=== PATIENT | female | born 1955 | race Caucasian/White ===

== ENCOUNTER 2017-03-03 19:58 | Emergency (ER) | payer OTHER ==
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
[2017-03-04 04:46] VITALS: BP 161/85
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
== END 2017-03-03 21:51 | disposition home or self-care (01) ==
LOC: MW.ED 19:58
DX: S09.90XA Unspecified injury of head, initial encounter (principal); E78.00 Pure hypercholesterolemia, unspecified; I10 Essential (primary) hypertension; F17.210 Nicotine dependence, cigarettes, uncomplicated; Z79.899 Other long term (current) drug therapy; V49.49XA Driver injured in collision with other motor vehicles in traffic accident, initial encounter
CPT/HCPCS: 70450; 72040; 81001; 93005; 99285; G0390; 99284

== ENCOUNTER 2017-06-08 19:40 | Emergency (ER) | payer OTHER, BC ==
[2017-06-08 19:45] VITALS: BP 164/86
--- NOTE | 2017-06-08 20:19 | EDM.PDOC ---
ED HPI GENERAL MEDICAL PROBLEM - General Chief Complaint: ENT Problem Stated Complaint: FOOD STUCK IN THROAT Time Seen by Provider: 06/08/17 20:13 Source of Information: Reports: Patient History Limitations: Reports: No Limitations - History of Present Illness INITIAL COMMENTS - FREE TEXT/NARRATIVE: HISTORY AND PHYSICAL: 61-year-old female presenting with having had spaghetti out her nose she feels that there is some hanging in the back of her throat History of Present Illness: []Patient noticed this this evening and has eaten bread and toast and nothing will relieve the sensation Review of Systems: As per history of present illness and below otherwise all systems reviewed and negative. Past medical history: As per history of present illness and as reviewed below otherwise noncontributory. Surgical history: As per history of present illness and as reviewed below otherwise noncontributory. Social history: No reported history of drug or alcohol abuse. Family history: As per history of present illness and as reviewed below otherwise noncontributory. Physical exam: Female who is anxious. cooperative with examination. Answering questions in full sentences without any shortness of breath HEENT: Atraumatic, normocehpalic, pupils reactive, negative for conjunctival pallor or scleral icterus, mucous membranes moist, throat clear, neck supple, nontender, trachea midline. No sign of any foreign body to the posterior throat or in the right nare Lungs: Clear to auscultation, breath sounds equal bilaterally, chest non tender. Heart: S1S2, regular, negative for clicks, rubs, or JVD. Abdomen: Soft, nondistended, nontender. Negative for masses or hepatossplenmegaly. Negative for costovertebral tenderness. Pelvis: Stable nontender. Genitourinary: Deferred. Rectal: Deferred Extremities: Atraumatic, negative for cords or calf pain. Neurovascular unremarkable. Neuro: Awake, alert, oriented. Cranial nerves II through XII unremarkable. Cerebellum unremarkable. Motor and sensory unremarkable throughout. Exam nonfocal. Discussed Test results with the patient Diagnostics: [] Therapeutics: [] Impression: []Foreign Body sensation posterior nare Plan: [] discharge home Use Jackie pot at home Follow up with your primary care provider Definitive disposition and diagnosis as appropriate pending reevaluation and review of above. Onset: Today, Sudden Duration: Hour(s): Location: Reports: Face Severity: Mild Improves with: Reports: None Worsens with: Reports: None sinuses Pain Score (Numeric/FACES): 2 - Related Data Allergies Allergy/AdvReac Type Severity Reaction Status Date / Time No Known Allergies Allergy Verified 06/08/17 19:45 Home Meds: Home Meds Albuterol Sulfate [Albuterol Sulfate HFA] 2 puff INH Q6HR PRN 01/16/14 [History] Chlorpheniramine Maleate [Allergy] 4 mg PO DAILY 01/16/14 [History] Levothyroxine Sodium [Synthroid] 150 mcg PO DAILY 01/16/14 [History] Montelukast Sodium 10 mg PO DAILY 01/16/14 [History] Budesonide/Formoterol [Symbicort 160-4.5 MCG] 1 - 2 inh IH DAILY 06/08/17 [ History] Tiotropium [Spiriva Handihaler] 1 - 2 inh IH DAILY 06/08/17 [History] Past Medical History HEENT History: Reports: Allergic Rhinitis Cardiovascular History: Reports: Heart Murmur, High Cholesterol, Hypertension Respiratory History: Reports: Asthma, COPD Gastrointestinal History: Reports: GERD Neurological History: Reports: Vertigo Endocrine/Metabolic History: Reports: Hypothyroidism Oncologic (Cancer) History: Reports: Squamous Cell Carcinoma - Infectious Disease History Infectious Disease History: Reports: Chicken Pox - Past Surgical History HEENT Surgical History: Reports: Tonsillectomy Social & Family History - Family History HEENT: Reports: None Cardiac: Reports: None - Tobacco Use Smoking Status *Q: Current Every Day Smoker Years of Tobacco use: 45 Packs/Tins Daily: 1 - Caffeine Use Caffeine Use: Reports: Coffee - Alcohol Use Number of Drinks Per Day: 0 - Recreational Drug Use Recreational Drug Use: Yes Drug Use in Last 12 Months: No Recreational Drug Type: Reports: Marijuana/Hashish ED ROS ENT - Review of Systems Review Of Systems: ROS reveals no pertinent complaints other than HPI. ED EXAM, ENT - Physical Exam Exam: See Below (See dictation) Course - Vital Signs Last Recorded V/S: Last Vital Signs Temp 36.5 C 06/08/17 19:43 Pulse 91 06/08/17 19:43 Resp 12 06/08/17 19:43 BP 164/86 H 06/08/17 19:43 Pulse Ox 97 06/08/17 19:43 Departure - Departure Time of Disposition: 20:16 Disposition: Home, Self-Care 01 Condition: Good Clinical Impression: Sensation of foreign body - Discharge Information Instructions: Nasal Foreign Body, [id number] Additional Instructions: The following information is given to patients seen in the emergency department who are being discharged to home. This information is to outline your options for follow-up care. We provide all patients seen in our emergency department with a follow-up referral. The need for follow-up, as well as the timing and circumstances, are variable depending upon the specifics of your emergency department visit. If you don't have a primary care physician on staff, we will provide you with a referral. We always advise you to contact your personal physician following an emergency department visit to inform them of the circumstance of the visit and for follow-up with them and/or the need for any referrals to a consulting specialist. The emergency department will also refer you to a specialist when appropriate. This referral assures that you have the opportunity for followup care with a specialist. All of these measure are taken in an effort to provide you with optimal care, which includes your followup. Under all circumstances we always encourage you to contact your private physician who remains a resource for coordinating your care. When calling for followup care, please make the office aware that this follow-up is from your recent emergency room visit. If for any reason you are refused follow-up, please contact the [facility] emergency department at and asked to speak to the emergency department charge nurse. Signs of any spaghetti stringing down the back of your throat It Is possible there is a small section that is in the posterior nasal passage Recommend that you use your Jackie pot at home Follow up with your primary care provider Return to the emergency room as directed and discussed
== END 2017-06-08 20:24 | disposition home or self-care (01) ==
LOC: MW.ED 19:40
DX: R09.89 Other specified symptoms and signs involving the circulatory and respiratory systems (principal); E78.00 Pure hypercholesterolemia, unspecified; I10 Essential (primary) hypertension; E03.9 Hypothyroidism, unspecified; F17.210 Nicotine dependence, cigarettes, uncomplicated; Z79.899 Other long term (current) drug therapy
CPT/HCPCS: 99282

== ENCOUNTER 2017-07-16 17:38 | Emergency (ER) | payer BC, OTHER ==
[2017-07-16] MEDS ORDERED: Ondansetron 4 MG/2 ML SDV IVPUSH ONE (17:51)
[2017-07-16] MEDS ORDERED: Sodium Chloride 0.9% 1,000 ML IV ONE (17:51)
[2017-07-16 17:53] VITALS: BP 145/82
--- NOTE | 2017-07-16 18:00 | EDM.PDOC ---
ED HPI GENERAL MEDICAL PROBLEM - General Chief Complaint: Gastrointestinal Problem Stated Complaint: NAUSEA, VOMITING, DIZZY, HEADACHE Time Seen by Provider: 07/16/17 18:08 Source of Information: Reports: Patient History Limitations: Reports: No Limitations - History of Present Illness INITIAL COMMENTS - FREE TEXT/NARRATIVE: HISTORY AND PHYSICAL: History of present illness: Patient is a 61-year-old female who presents to the emergency room with complaints multiple vague symptoms over the past 24 hours. She c/o sinus pressure and pain that starts on the right side of her face goes into the maxillary sinus and into her mouth. States she has severe dizziness which is not affected by movement or resting. States this is constant and prefers to keep her eyes closed. States she is nauseated and had one episode of diarrhea this morning. History of heart murmur, elevated cholesterol, hypertension, and allergic rhinitis. She denies any recent injury or trauma. She denies any fever, chills, chest pain or shortness of breath. Denies any abdominal pain, dysuria syncopal events. Review of systems: As per history of present illness and below otherwise all systems reviewed and negative. Past medical history: As per history of present illness and as reviewed below otherwise noncontributory. Surgical history: As per history of present illness and as reviewed below otherwise noncontributory. Social history: No reported history of drug or alcohol abuse. Family history: As per history of present illness and as reviewed below otherwise noncontributory. Physical exam: General: Well-developed, thin but well-nourished 61-year-old female. Alert and oriented. Nontoxic appearing and in no acute distress. HEENT: Atraumatic, normocephalic, pupils equal and reactive bilaterally, negative for conjunctival pallor or scleral icterus, mucous membranes moist, throat clear, neck supple, nontender, trachea midline. Maxillary sinus tenderness bilaterallly. No drooling or trismus noted. No meningeal signs. No hot potato voice. Lungs: Clear to auscultation, breath sounds equal bilaterally, chest nontender. Heart: S1S2, regular rate and rhythm without overt murmur Abdomen: Soft, nondistended, nontender. Negative for masses or hepatosplenomegaly. Negative for costovertebral tenderness. Pelvis: Stable nontender. Genitourinary: Deferred. Rectal: Deferred. Skin: Intact, warm, dry. No lesions or rashes noted. Extremities: Atraumatic, negative for cords or calf pain. Neurovascular unremarkable. Neuro: Awake, alert, oriented. Cranial nerves II through XII unremarkable. Cerebellum unremarkable. Motor and sensory unremarkable throughout. Exam nonfocal. Notes: Patient is very vague and nonspecific with her symptoms. I will to some routine lab work along with cardiac enzymes/EKG/chest x-ray. Upon the interventional radiology technologist bringing the patient down for head CT. Patient one is unable to lie flat as she states she was too dizzy to sit still or lay in a supine position. Did have to give her 2.5 mg of Valium to get her durable enough to have the CT completed Patient states she feels improved after the IV fluids and medications. Head CT shows no acute findings. Chest x-ray is normal. EKG shows no acute findings. We' ll give her a gram of Rocephin IV for the sinus pressure and pain she is having and she does also have a white count of 12.3. I did offer her admission for observation, she declined. She feels better and would like to be discharged to home. I encouraged her to follow up with her primary care provider in the next 1 -2 days. She voices understanding and is agreeable to plan of care. She denies any further questions at this time. Diagnostics: CBC, CMP, troponin, EKG, head CT, CXR Therapeutics: IV fluids, Zofran, Valium Impression: Dizziness Plan: Follow up with your primary care provider in the next 1-2 day. Return to the ED as needed and as discussed. Definitive disposition and diagnosis as appropriate pending reevaluation and review of above. Onset: Today Duration: Day(s): Location: Reports: Face Face Pain Score (Numeric/FACES): 9 - Related Data Allergies Allergy/AdvReac Type Severity Reaction Status Date / Time No Known Allergies Allergy Verified 07/16/17 17:55 Home Meds: Home Meds Albuterol Sulfate [Albuterol Sulfate HFA] 2 puff INH Q6HR PRN 01/16/14 [History] Levothyroxine Sodium [Synthroid] 150 mcg PO DAILY 01/16/14 [History] Montelukast Sodium 10 mg PO DAILY 01/16/14 [History] Budesonide/Formoterol [Symbicort 160-4.5 MCG] 1 - 2 inh IH DAILY 06/08/17 [ History] Tiotropium [Spiriva Handihaler] 1 - 2 inh IH DAILY 06/08/17 [History] Past Medical History HEENT History: Reports: Allergic Rhinitis Cardiovascular History: Reports: Heart Murmur, High Cholesterol, Hypertension Respiratory History: Reports: Asthma, COPD Gastrointestinal History: Reports: GERD Neurological History: Reports: Vertigo Endocrine/Metabolic History: Reports: Hypothyroidism Oncologic (Cancer) History: Reports: Squamous Cell Carcinoma - Infectious Disease History Infectious Disease History: Reports: Chicken Pox - Past Surgical History HEENT Surgical History: Reports: Tonsillectomy Social & Family History - Family History HEENT: Reports: None Cardiac: Reports: None - Caffeine Use Caffeine Use: Reports: Coffee ED ROS GENERAL - Review of Systems Review Of Systems: ROS reveals no pertinent complaints other than HPI. ED EXAM, GENERAL - Physical Exam Exam: See Below (See dictation) Course - Vital Signs Last Recorded V/S: Last Vital Signs Temp 98.8 F 07/16/17 17:50 Pulse 93 07/16/17 17:50 Resp 18 07/16/17 17:50 BP 145/82 H 07/16/17 17:50 Pulse Ox 93 L 07/16/17 17:50 Orthostatic Blood Pressure [ 169/79 Standing] Orthostatic Blood Pressure [ 149/79 Sitting] Orthostatic Blood Pressure [ 151/81 Supine] - Orders/Labs/Meds Labs: Laboratory Tests 07/16/17 07/16/17 07/16/17 Range/Units 18:02 18:02 19:03 WBC 12.23 H (4.0-11.0) K/uL RBC 4.71 (4.30-5.90) M/uL Hgb 15.1 (12.0-16.0) g/dL Hct 44.9 (36.0-46.0) % MCV 95.3 (80.0-98.0) fL MCH 32.1 H (27.0-32.0) pg MCHC 33.6 (31.0-37.0) g/dL RDW Std Deviation 46.2 (28.0-62.0) fl RDW Coeff of Alejo 13 (11.0-15.0) % Plt Count 350 (150-400) K/uL MPV 8.90 (7.40-12.00) fL Neut % (Auto) 68.4 (48.0-80.0) % Lymph % (Auto) 22.9 (16.0-40.0) % Divide % (Auto) 7.8 (0.0-15.0) % Eos % (Auto) 0.5 (0.0-7.0) % Baso % (Auto) 0.4 (0.0-1.5) % Neut # (Auto) 8.4 H (1.4-5.7) K/uL Lymph # (Auto) 2.8 H (0.6-2.4) K/uL Divide # (Auto) 1.0 H (0.0-0.8) K/uL Eos # (Auto) 0.1 (0.0-0.7) K/uL Baso # (Auto) 0.1 (0.0-0.1) K/uL Nucleated RBC % 0.0 /100WBC Nucleated RBCs # 0 K/uL Sodium 137 (136-145) mmol/L Potassium 3.8 (3.5-5.1) mmol/L Chloride 102 (98-107) mmol/L Carbon Dioxide 25.9 (21.0-32.0) mmol/L BUN 16 (7.0-18.0) mg/dL Creatinine 0.8 (0.6-1.0) mg/dL Est Cr Clr Drug Dosing 50.12 mL/min Estimated GFR (MDRD) > 60.0 ml/min Glucose 101 (74-106) mg/dL Calcium 9.0 (8.5-10.1) mg/dL Total Bilirubin 0.7 (0.2-1.0) mg/dL AST 15 (15-37) IU/L ALT 21 (14-63) IU/L Alkaline Phosphatase 71 (46-116) U/L Troponin I < 0.050 (0.000-0.056) ng/mL Total Protein 7.6 (6.4-8.2) g/dL Albumin 4.2 (3.4-5.0) g/dL Globulin 3.4 (2.0-3.5) g/dL Albumin/Globulin Ratio 1.2 L (1.3-2.8) Urine Color YELLOW Urine Appearance CLEAR Urine pH 7.0 (5.0-8.0) Ur Specific [place] 1.010 (1.001-1.035) Urine Protein NEGATIVE (NEGATIVE) mg/dL Urine Glucose (UA) NEGATIVE (NEGATIVE) mg/dL Urine Ketones TRACE H (NEGATIVE) mg/dL Urine Occult Blood SMALL H (NEGATIVE) Urine Nitrite NEGATIVE (NEGATIVE) Urine Bilirubin NEGATIVE (NEGATIVE) Urine Urobilinogen 0.2 (<2.0) EU/dL Ur Leukocyte Esterase TRACE (NEGATIVE) Urine RBC 2-3 (0-2/HPF) Urine WBC 2-5 (0-5/HPF) Ur Epithelial Cells OCCASIONAL (NONE-FEW) Amorphous Sediment FEW (NEGATIVE) Urine Bacteria FEW (NEGATIVE) Urine Mucus FEW (NONE-MOD) Meds: Medications Discontinued Medications Generic Name Dose Route Start Last Admin Trade Name Julio PRN Reason Stop Dose Admin Diazepam 5 mg 07/16/17 18:29 Valium IV 07/16/17 18:30 ONETIME ONE Diazepam 2.5 mg 07/16/17 18:29 07/16/17 18:46 Valium IV 07/16/17 18:30 2.5 mg ONETIME ONE Administration Sodium Chloride 1,000 mls @ 999 mls/hr 07/16/17 17:51 07/16/17 18:05 Normal Saline IV 07/16/17 18:51 999 mls/hr STAT ONE Administration Ceftriaxone Sodium/Dextrose 1 50 mls @ 100 mls/hr 07/16/17 19:57 gm/ Premix IV 07/16/17 20:26 ONETIME ONE Ondansetron HCl 4 mg 07/16/17 17:51 07/16/17 18:05 Zofran IVPUSH 07/16/17 17:52 4 mg ONETIME ONE Administration Departure - Departure Time of Disposition: 21:30 Disposition: Home, Self-Care 01 Clinical Impression: Dizziness - Discharge Information Referrals: PCP,None [Primary Care Provider] - Forms: ED Department Discharge Additional Instructions: The following information is given to patients seen in the emergency department who are being discharged to home. This information is to outline your options for follow-up care. We provide all patients seen in our emergency department with a follow-up referral. The need for follow-up, as well as the timing and circumstances, are variable depending upon the specifics of your emergency department visit. If you don't have a primary care physician on staff, we will provide you with a referral. We always advise you to contact your personal physician following an emergency department visit to inform them of the circumstance of the visit and for follow-up with them and/or the need for any referrals to a consulting specialist. The emergency department will also refer you to a specialist when appropriate. This referral assures that you have the opportunity for follow-up care with a specialist. All of these measure are taken in an effort to provide you with optimal care, which includes your follow-up. Under all circumstances we always encourage you to contact your private physician who remains a resource for coordinating your care. When calling for follow-up care, please make the office aware that this follow-up is from your recent emergency room visit. If for any reason you are refused follow-up, please contact the [facility] Emergency Department at and asked to speak to the emergency department charge nurse. [facility] [address] [place] [id number] Follow up with your primary care provider in the next 1-2 day. Return to the ED as needed and as discussed.
[2017-07-16] MEDS ORDERED: Diazepam 5 MG/ML 10 ML Vial MDV IV ONE ×2 (18:29)
[2017-07-16 18:31] LABS: CHLORIDE,CL 102 mmol/L (98-107); SODIUM,NA 137 mmol/L (136-145)
[2017-07-16] MEDS ORDERED: cefTRIAXone 1 GM in Premix Bag 1 BAG IV ONE (19:57)
--- NOTE | 2017-07-17 09:24 | CR ---
EXAM DATE: 07/16/17 PATIENT'S AGE: 61 Patient: MAY BRITTANEY Facility: [place], [place] Site . Site : 1955 Study: XRay Chest [id number] 6:37:52 PM Ordering Physician: Doctor Morse Final Report: INDICATION: Dizziness. Nausea and vomiting. COMPARISON: none TECHNIQUE: Two view chest. FINDINGS: The lungs are clear. There is no evidence of pneumothorax. The visualized bowel gas appears normal. The heart, mediastinum and pulmonary vessels are of normal size. There is no evidence of pleural fluid. IMPRESSION: Negative chest. Dictated by Javi Haider MD @ Jul 16 2017 7:16PM (Electronic Signature) Report Signed by Proxy. GEOFF
--- NOTE | 2017-07-17 09:24 | CT ---
EXAM DATE: 07/16/17 PATIENT'S AGE: 61 Patient: MAY BRITTANEY Facility: [place], [place] Site . Site : 1955 Study: CT Head [id number] 6:47:41 PM Ordering Physician: Doctor Morse Final Report: INDICATION: Trauma. Dizziness and nausea. COMPARISON: Head CT dated 03/03/2017. TECHNIQUE: A CT volumetric acquisition was performed of the brain without IV contrast. FINDINGS: There is no evidence of a subdural or epidural hematoma. There is no evidence of subarachnoid hemorrhage or intraparenchymal bleeding. The CT images reveal a normal appearance of the cerebral ventricles and basal cisterns. There is no evidence of localized tissue infarction or mass effect. There is normal bird white matter differentiation. The mastoid air cells and middle ear cavities are clear. The calvarium appears intact. There is normal aeration of the visualized paranasal sinuses. There is stable deformity of the medial wall of the left orbit consistent with an old healed fracture. This appears unchanged from the prior CT of 03/03/2017. The zygomatic arches appear intact. There is an old healed fracture deformity right mandibular condyle. IMPRESSION: No evidence of acute hemorrhage, infarct or mass effect. Please note that all CT scans at this facility use dose modulation, iterative reconstruction, and/or weight-based dosing when appropriate to reduce radiation dose to as low as reasonably achievable. Dictated by Javi Haider MD @ Jul 16 2017 7:22PM (Electronic Signature) Report Signed by Proxy. GEOFF
== END 2017-07-16 21:24 | disposition home or self-care (01) ==
LOC: MW.ED 17:38
DX: R42 Dizziness and giddiness (principal); E78.00 Pure hypercholesterolemia, unspecified; I10 Essential (primary) hypertension; J45.909 Unspecified asthma, uncomplicated; E03.9 Hypothyroidism, unspecified; Z79.899 Other long term (current) drug therapy
CPT/HCPCS: 36415; 70450; 71045; 80053; 81001; 84484; 85025; 93005; 96361; 96365; 96375; 99284; A9270; J2405; J7040; 99283

== ENCOUNTER 2022-02-14 14:25 | Inpatient (IN) | payer OTHER ==
[2022-02-14] MEDS ORDERED: Sodium Chloride 0.9% 10 ML Syringe FLUSH PRN ×2 (15:38→18:17)
[2022-02-14] MEDS ORDERED: Sodium Chloride 0.9% 2.5 ML Syringe FLUSH PRN ×2 (15:38→18:17)
[2022-02-14] MEDS ORDERED: methylPREDNISolone Sodium Succinate 125 MG/2 ML SDV IVPUSH ONE (15:38)
[2022-02-14] MEDS ORDERED: Albuterol/Ipratropium 3.0-0.5 MG/3 ML Neb Soln NEB ONE ×2 (15:39→16:49)
[2022-02-14 16:10] LABS: CORONAVIRUS COVID-19 NAA NEGATIVE (NEGATIVE); INFLUENZA A NAA NEGATIVE (NEGATIVE); INFLUENZA B NAA NEGATIVE (NEGATIVE)
[2022-02-14 16:10] LABS: CARBON DIOXIDE,CO2 31.4 mmol/L (21.0-32.0); POTASSIUM,K 3.8 mmol/L (3.5-5.1)
[2022-02-14] MEDS ORDERED: NIFEdipine 30 MG Tab.ER PO ONE (17:22)
[2022-02-14] MEDS ORDERED: Azithromycin 500 MG in Sodium Chloride 0.9% 250 ML IV ONE (17:24)
[2022-02-14] MEDS ORDERED: cefTRIAXone 1 GM in Sodium Chloride 0.9% 50 ML IV ONE (17:24)
[2022-02-14] MEDS ORDERED: Labetalol 100 MG/20 ML MDV IVPUSH PRN (18:15)
[2022-02-14] MEDS ORDERED: Polyethylene Glycol 3350 Powder 17 GM Packet PO PRN (18:17)
[2022-02-14] MEDS ORDERED: Ondansetron 4 MG/2 ML SDV IVPUSH PRN (18:17)
[2022-02-14] MEDS ORDERED: Albuterol/Ipratropium 3.0-0.5 MG/3 ML Neb Soln NEB PRN (18:28)
[2022-02-14] MEDS ORDERED: Pantoprazole 40 MG in Sodium Chloride 0.9% 10 ML IVPUSH SCH (18:45)
[2022-02-14] MEDS ORDERED: Lisinopril 5 MG Tab PO ONE (18:50)
[2022-02-14] MEDS: Acetaminophen 325 MG Tab PO PRN (19:59)
[2022-02-14] MEDS: Albuterol/Ipratropium 3.0-0.5 MG/3 ML Neb Soln NEB SCH (21:39)
[2022-02-14] MEDS: Enoxaparin 40 MG/0.4 ML Syringe SUBCUT SCH (21:40)
[2022-02-15] MEDS: Albuterol/Ipratropium 3.0-0.5 MG/3 ML Neb Soln NEB SCH ×2 (01:05→07:26)
[2022-02-15 06:51] LABS: CARBON DIOXIDE,CO2 28.7 mmol/L (21.0-32.0); POTASSIUM,K 3.8 mmol/L (3.5-5.1)
[2022-02-15] MEDS: Levothyroxine 150 MCG Tab PO SCH (08:27)
[2022-02-15] MEDS: Magnesium Oxide 400 MG Tab PO SCH ×2 (08:27→20:30)
[2022-02-15] MEDS: Azithromycin 500 MG in Sodium Chloride 0.9% 250 ML IV SCH (08:28)
[2022-02-15] MEDS: methylPREDNISolone Sodium Succinate 40 MG/1 ML SDV IVPUSH SCH ×2 (08:28→20:30)
[2022-02-15] MEDS: Tiotropium Bromide 4 GM Inhalation Spray (2.5mcg/1 dose; 10 doses) INH SCH (08:28)
[2022-02-15] MEDS ORDERED: Lisinopril 5 MG Tab PO SCH (09:00)
[2022-02-15] MEDS: cefTRIAXone 1 GM in Sodium Chloride 0.9% 50 ML IV SCH (11:00)
[2022-02-15] MEDS ORDERED: Lisinopril 5 MG Tab PO ONE (16:39)
[2022-02-15] MEDS: Enoxaparin 40 MG/0.4 ML Syringe SUBCUT SCH (18:04)
[2022-02-15] MEDS: Pantoprazole 40 MG Tab.CR PO SCH ×2 (20:30→20:31)
[2022-02-15] MEDS: Acetaminophen 325 MG Tab PO PRN (20:37)
[2022-02-16 06:05] VITALS: PULSE 83
[2022-02-16 07:40] LABS: CARBON DIOXIDE,CO2 27.9 mmol/L (21.0-32.0); POTASSIUM,K 4.3 mmol/L (3.5-5.1)
[2022-02-16] MEDS ORDERED: Pantoprazole 40 MG Tab.CR PO SCH (07:51)
[2022-02-16] MEDS ORDERED: Budesonide/Formoterol 160-4.5 MCG/Puff 6 GM Inhaler INH SCH (07:58)
[2022-02-16] MEDS ORDERED: Bismuth Subsalicylate 262 MG/15 ML Susp 236 ML Bottle PO ONE (08:01)
[2022-02-16] MEDS: Azithromycin 500 MG in Sodium Chloride 0.9% 250 ML IV SCH (08:03)
[2022-02-16] MEDS ORDERED: Albuterol 8 GM Inhaler INH PRN (08:03)
[2022-02-16] MEDS: cefTRIAXone 1 GM in Sodium Chloride 0.9% 50 ML IV SCH (08:03)
[2022-02-16] MEDS: Levothyroxine 150 MCG Tab PO SCH (08:03)
[2022-02-16] MEDS: methylPREDNISolone Sodium Succinate 40 MG/1 ML SDV IVPUSH SCH (08:04)
[2022-02-16] MEDS ORDERED: Calcium Carbonate 500 MG Tab.Chew PO PRN (08:20)
[2022-02-16] MEDS: Tiotropium Bromide 4 GM Inhalation Spray (2.5mcg/1 dose; 10 doses) INH SCH (08:27)
[2022-02-16 08:30] VITALS: BP 175/79
[2022-02-16] MEDS ORDERED: Lisinopril 10 MG Tab PO SCH (09:00)
[2022-02-16] MEDS ORDERED: Fluticasone/Salmeterol 250-50 MCG Inhalation Powder 14/Diskus INH SCH (09:30)
== END 2022-02-16 11:45 | disposition home or self-care (01) | DRG 193 ==
LOC: MW.ED 14:25 → MW.MS 17:40
PROVIDERS: ADMIT Internal Medicine; ATTEND Internal Medicine
DX: J18.9 Pneumonia, unspecified organism (principal); J96.01 Acute respiratory failure with hypoxia; J44.0 Chronic obstructive pulmonary disease with (acute) lower respiratory infection; J44.1 Chronic obstructive pulmonary disease with (acute) exacerbation; Z20.822 Contact with and (suspected) exposure to COVID-19; I10 Essential (primary) hypertension; I16.0 Hypertensive urgency; E78.00 Pure hypercholesterolemia, unspecified; E03.9 Hypothyroidism, unspecified; K21.9 Gastro-esophageal reflux disease without esophagitis; F17.210 Nicotine dependence, cigarettes, uncomplicated; Z79.890 Hormone replacement therapy; Z79.899 Other long term (current) drug therapy; Z85.828 Personal history of other malignant neoplasm of skin; Z86.19 Personal history of other infectious and parasitic diseases; Z90.89 Acquired absence of other organs; Z91.14 Patient's other noncompliance with medication regimen; Z79.51 Long term (current) use of inhaled steroids
CPT/HCPCS: 0240U; 36415; 71045; 80048; 80053; 83735; 83880; 84100; 84484; 85025; 87040; 93005; 94640; 96365; 96375; 99285; 93010; A9270-GY; C9113; J0456; J0696; J1650; J2920; J2930; J3490; J7050; J7620-GY

== ENCOUNTER 2022-03-31 10:30 | Emergency (ER) | payer OTHER ==
[2022-03-31] MEDS ORDERED: Sodium Chloride 0.9% 2.5 ML Syringe FLUSH PRN (10:35)
[2022-03-31] MEDS ORDERED: Sodium Chloride 0.9% 10 ML Syringe FLUSH PRN (10:35)
[2022-03-31 11:22] LABS: CARBON DIOXIDE,CO2 30.1 mmol/L (21.0-32.0); POTASSIUM,K 4.1 mmol/L (3.5-5.1)
[2022-03-31] MEDS ORDERED: Ondansetron 4 MG/2 ML SDV IVPUSH ONE (11:22)
[2022-03-31 12:31] VITALS: BP 190/97; PULSE 86
== END 2022-03-31 12:17 | disposition home or self-care (01) ==
LOC: MW.ED 10:30
DX: R19.7 Diarrhea, unspecified (principal); I10 Essential (primary) hypertension; J44.9 Chronic obstructive pulmonary disease, unspecified; K21.9 Gastro-esophageal reflux disease without esophagitis; E03.9 Hypothyroidism, unspecified; Z79.899 Other long term (current) drug therapy
CPT/HCPCS: 36415; 80053; 81001; 85025; 96374; 99284; J2405; J3490

== ENCOUNTER 2022-05-29 10:05 | Emergency (ER) | payer OTHER ==
[2022-05-29] MEDS ORDERED: predniSONE 10 MG Tab PO ONE (11:19)
[2022-05-29] MEDS ORDERED: Albuterol/Ipratropium 3.0-0.5 MG/3 ML Neb Soln NEB ONE (11:19)
[2022-05-29 12:26] LABS: CORONAVIRUS COVID-19 NAA NEGATIVE (NEGATIVE); INFLUENZA A NAA NEGATIVE (NEGATIVE); INFLUENZA B NAA NEGATIVE (NEGATIVE); RESPIRATORY SYNCYTIAL VIR NAA NEGATIVE (NEGATIVE)
[2022-05-29 12:44] VITALS: BP 186/87; PULSE 83
== END 2022-05-29 12:44 | disposition home or self-care (01) ==
LOC: MW.ED 10:05
DX: J40 Bronchitis, not specified as acute or chronic (principal); I10 Essential (primary) hypertension; K21.9 Gastro-esophageal reflux disease without esophagitis; E03.9 Hypothyroidism, unspecified; Z79.899 Other long term (current) drug therapy; Z20.822 Contact with and (suspected) exposure to COVID-19
CPT/HCPCS: 0241U; 71046; 99284; A9270; 99283; J7620-GY

== ENCOUNTER 2022-06-02 15:48 | Inpatient (IN) | payer OTHER ==
[2022-06-02] MEDS ORDERED: Sodium Chloride 0.9% 10 ML Syringe FLUSH PRN (15:59)
[2022-06-02] MEDS ORDERED: Sodium Chloride 0.9% 2.5 ML Syringe FLUSH PRN (15:59)
[2022-06-02 16:52] LABS: CARBON DIOXIDE,CO2 30.3 mmol/L (21.0-32.0)
[2022-06-02] MEDS ORDERED: Sodium Chloride 0.9% 1,000 ML IV ONE (17:30)
[2022-06-02] MEDS ORDERED: Lisinopril 10 MG Tab PO ONE (17:31)
[2022-06-02] MEDS ORDERED: Aspirin 81 MG Tab.Chew PO ONE (17:31)
[2022-06-02] MEDS ORDERED: cefTRIAXone 1 GM in Sodium Chloride 0.9% 50 ML IV ONE (19:04)
[2022-06-02] MEDS ORDERED: cefTRIAXone 1 GM in Sodium Chloride 0.9% 50 ML IV SCH (22:15)
[2022-06-02] MEDS: Enoxaparin 40 MG/0.4 ML Syringe SUBCUT SCH (22:49)
[2022-06-02] MEDS: Azithromycin 500 MG in Sodium Chloride 0.9% 250 ML IV SCH (22:49)
[2022-06-02] MEDS: Levothyroxine 75 MCG Tab PO SCH (22:49)
[2022-06-02] MEDS: Albuterol/Ipratropium 3.0-0.5 MG/3 ML Neb Soln NEB SCH (23:40)
[2022-06-03] MEDS ORDERED: Lisinopril 10 MG Tab PO ONE ×2 (04:27→11:45)
[2022-06-03 06:22] LABS: CARBON DIOXIDE,CO2 28.4 mmol/L (21.0-32.0); POTASSIUM,K 4.1 mmol/L (3.5-5.1)
[2022-06-03] MEDS: Albuterol/Ipratropium 3.0-0.5 MG/3 ML Neb Soln NEB SCH ×4 (06:39→23:43)
[2022-06-03] MEDS: Pantoprazole 40 MG Tab.CR PO SCH (07:03)
[2022-06-03] MEDS ORDERED: Lisinopril 10 MG Tab PO SCH (09:00)
[2022-06-03] MEDS: Polyethylene Glycol 3350 Powder 17 GM Packet PO SCH (11:52)
[2022-06-03] MEDS: cefTRIAXone 1 GM in Sodium Chloride 0.9% 50 ML IV SCH (18:34)
[2022-06-03] MEDS: Enoxaparin 40 MG/0.4 ML Syringe SUBCUT SCH (22:06)
[2022-06-03] MEDS: Azithromycin 500 MG in Sodium Chloride 0.9% 250 ML IV SCH (22:06)
[2022-06-03] MEDS: Levothyroxine 75 MCG Tab PO SCH (22:06)
[2022-06-03] MEDS: Acetaminophen 325 MG Tab PO PRN (22:23)
[2022-06-03] MEDS ORDERED: amLODIPine 5 MG Tab PO ONE (23:53)
[2022-06-04] MEDS: Pantoprazole 40 MG Tab.CR PO SCH ×2 (06:23→06:29)
[2022-06-04] MEDS: Albuterol/Ipratropium 3.0-0.5 MG/3 ML Neb Soln NEB SCH (06:35)
[2022-06-04 06:51] LABS: CARBON DIOXIDE,CO2 28.6 mmol/L (21.0-32.0)
[2022-06-04] MEDS: Polyethylene Glycol 3350 Powder 17 GM Packet PO SCH (08:49)
[2022-06-04] MEDS: Lisinopril 10 MG Tab PO SCH (08:50)
[2022-06-04] MEDS: Albuterol 0.083% 2.5 MG/3 ML Neb Soln INH SCH ×3 (12:00→23:58)
[2022-06-04] MEDS: Ipratropium 0.02% 0.5 MG/2.5 ML Neb Soln INH SCH ×3 (12:00→23:58)
[2022-06-04] MEDS: cefTRIAXone 1 GM in Sodium Chloride 0.9% 50 ML IV SCH (18:35)
[2022-06-04] MEDS: Azithromycin 500 MG in Sodium Chloride 0.9% 250 ML IV SCH ×2 (21:20→21:43)
[2022-06-04] MEDS: Levothyroxine 75 MCG Tab PO SCH ×2 (21:20→21:43)
[2022-06-04] MEDS: Enoxaparin 40 MG/0.4 ML Syringe SUBCUT SCH (21:20)
[2022-06-04] MEDS ORDERED: Albuterol 8 GM Inhaler INH PRN (22:15)
[2022-06-05] MEDS: Pantoprazole 40 MG Tab.CR PO SCH (06:30)
[2022-06-05] MEDS: Ipratropium 0.02% 0.5 MG/2.5 ML Neb Soln INH SCH (06:41)
[2022-06-05] MEDS: Albuterol 0.083% 2.5 MG/3 ML Neb Soln INH SCH (06:42)
[2022-06-05 07:09] LABS: CARBON DIOXIDE,CO2 31.2 mmol/L (21.0-32.0); POTASSIUM,K 3.8 mmol/L (3.5-5.1)
[2022-06-05] MEDS: Polyethylene Glycol 3350 Powder 17 GM Packet PO SCH (09:17)
[2022-06-05] MEDS: Lisinopril 10 MG Tab PO SCH (09:19)
[2022-06-05] MEDS ORDERED: guaiFENesin/Dextromethorphan 100-10 MG/5 ML Soln 10 ML Cup PO PRN (09:36)
[2022-06-05] MEDS ORDERED: Benzonatate 100 MG Cap PO PRN (09:36)
[2022-06-05] MEDS ORDERED: oxyCODONE 5 MG Tab PO PRN (09:37)
[2022-06-05] MEDS ORDERED: Morphine 2 MG/ML SYRINGE IVPUSH PRN (09:37)
[2022-06-05] MEDS ORDERED: traMADol 50 MG Tab PO PRN (09:40)
[2022-06-05] MEDS: hydrALAZINE 20 MG/ML SDV IVPUSH PRN (10:06)
[2022-06-05] MEDS: Hydrochlorothiazide 12.5 MG Cap PO SCH (10:19)
[2022-06-05] MEDS: Albuterol/Ipratropium 3.0-0.5 MG/3 ML Neb Soln INH SCH ×3 (12:14→23:54)
[2022-06-05] MEDS: cefTRIAXone 1 GM in Sodium Chloride 0.9% 50 ML IV SCH (19:01)
[2022-06-05] MEDS: Azithromycin 500 MG in Sodium Chloride 0.9% 250 ML IV SCH (22:40)
[2022-06-05] MEDS: Levothyroxine 75 MCG Tab PO SCH (22:43)
[2022-06-05] MEDS: Enoxaparin 40 MG/0.4 ML Syringe SUBCUT SCH (22:44)
[2022-06-06] MEDS: hydrALAZINE 20 MG/ML SDV IVPUSH PRN (05:08)
[2022-06-06] MEDS: Pantoprazole 40 MG Tab.CR PO SCH (06:30)
[2022-06-06] MEDS: Albuterol/Ipratropium 3.0-0.5 MG/3 ML Neb Soln INH SCH (06:40)
[2022-06-06] MEDS: Acetaminophen 325 MG Tab PO PRN (07:41)
[2022-06-06] MEDS: Polyethylene Glycol 3350 Powder 17 GM Packet PO SCH (08:30)
[2022-06-06] MEDS: Hydrochlorothiazide 12.5 MG Cap PO SCH (08:30)
[2022-06-06 08:57] LABS: CARBON DIOXIDE,CO2 27.2 mmol/L (21.0-32.0); POTASSIUM,K 4.1 mmol/L (3.5-5.1)
[2022-06-06] MEDS ORDERED: Lisinopril 10 MG Tab PO SCH (09:00)
[2022-06-06 11:20] VITALS: BP 146/67; PULSE 86
== END 2022-06-06 13:00 | disposition home health service (06) | DRG 194 ==
LOC: MW.ED 15:48 → MW.MS 19:39
PROVIDERS: ADMIT Internal Medicine; ATTEND Internal Medicine
DX: J18.9 Pneumonia, unspecified organism (principal); E46 Unspecified protein-calorie malnutrition; Z68.1 Body mass index [BMI] 19.9 or less, adult; J44.0 Chronic obstructive pulmonary disease with (acute) lower respiratory infection; E78.00 Pure hypercholesterolemia, unspecified; K21.9 Gastro-esophageal reflux disease without esophagitis; E03.9 Hypothyroidism, unspecified; I10 Essential (primary) hypertension; Z79.51 Long term (current) use of inhaled steroids; Z79.899 Other long term (current) drug therapy; Z91.148 Patient's other noncompliance with medication regimen for other reason; Z90.89 Acquired absence of other organs
CPT/HCPCS: 36415; 70450; 70450-26; 71045; 71045-26; 80048; 80053; 80305-QW; 81001; 82947; 83605; 83735; 84439; 84443; 84481; 84484; 85025; 85610; 93005; 93010; 94640; 96361; 96365; 97162-GP; 99285; 99285-25; A9270-GY; J0360; J0456; J0696; J1650; J2270; J3490; J7030; J7050; J7620-GY

== ENCOUNTER 2022-06-10 13:34 | Inpatient (IN) | payer OTHER ==
[2022-06-10] MEDS ORDERED: Sodium Chloride 0.9% 1,000 ML IV STA (13:54)
[2022-06-10] MEDS ORDERED: Sodium Chloride 0.9% 20 ML SDV IV PRN (13:54)
[2022-06-10] MEDS ORDERED: Sodium Chloride 0.9% 10 ML Syringe FLUSH PRN (13:54)
[2022-06-10] MEDS ORDERED: Sodium Chloride 0.9% 2.5 ML Syringe FLUSH PRN (13:54)
[2022-06-10 14:03] LABS: BASOPHILS ABSOLUTE AUTO 0.1 K/uL (0.0-0.1); BASOPHILS PERCENT AUTO 0.4 % (0.0-1.5); EOSINOPHILS ABSOLUTE AUTO 0.1 K/uL (0.0-0.7); EOSINOPHILS PERCENT AUTO 0.6 % (0.0-7.0); HEMATOCRIT 44.7 % (36.0-46.0); HEMOGLOBIN 14.6 g/dL (12.0-16.0); LYMPHOCYTES ABSOLUTE AUTO 0.9 K/uL (0.6-2.4); LYMPHOCYTES PERCENT AUTO 6.8 % (16.0-40.0); MEAN CORPUSCULAR HEMOGLOBIN 31.8 pg (27.0-32.0); MEAN CORPUSCULAR HGB CONC 32.7 g/dL (31.0-37.0); MEAN CORPUSCULAR VOLUME 97.4 fL (80.0-98.0); MONOCYTES PERCENT AUTO 7.4 % (0.0-15.0); NEUTROPHILS PERCENT AUTO 84.8 % (48.0-80.0); NRBC ABSOLUTE 0 K/uL; PLATELET COUNT,PLT 393 K/uL (150-400); RED BLOOD CELL COUNT 4.59 M/uL (4.30-5.90); WHITE BLOOD CELL COUNT,WBC 13.02 K/uL (4.0-11.0)
[2022-06-10 14:12] LABS: INR 0.98 (0.86-1.11); PTT,PARTIAL THROMBOPLSTIN TIME 32.9 SEC (23.9-30.7)
[2022-06-10 14:23] LABS: A/G RATIO 0.6 (0.9-1.6); ALANINE AMINOTRANSFERASE,ALT 19 IU/L (14-63); ALBUMIN 2.7 g/dL (3.4-5.0); ALKALINE PHOSPHATASE 103 U/L (46-116); ASPARTATE AMNIOTRANSFERASE,AST 21 IU/L (15-37); BILIRUBIN TOTAL 0.3 mg/dL (0.2-1.0); BLOOD UREA NITROGEN,BUN 19 mg/dL (7.0-18.0); CALCIUM 8.7 mg/dL (8.5-10.1); CARBON DIOXIDE,CO2 29.9 mmol/L (21.0-32.0); CHLORIDE,CL 102 mmol/L (98-107); CREATININE 0.7 mg/dL (0.6-1.0); EST CRCL DRUG DOSING (CG) 50.26 mL/min; ETHANOL BLOOD MEDICAL <3 mg/dL; GLUCOSE RANDOM 103 mg/dL (74-106); POTASSIUM,K 3.9 mmol/L (3.5-5.1); PROTEIN TOTAL,TP 6.9 g/dL (6.4-8.2); SODIUM,NA 140 mmol/L (136-145)
[2022-06-10 14:26] LABS: ESTIMATED GFR 95 mL/min (>60)
[2022-06-10 15:01] LABS: APPEARANCE,URINE CLEAR; BILIRUBIN,URINE NEGATIVE (NEGATIVE); COLOR,URINE YELLOW; GLUCOSE,URINE NEGATIVE (NEGATIVE); KETONES,URINE NEGATIVE (NEGATIVE); LEUKOCYTE ESTERASE,URINE NEGATIVE (NEGATIVE); NITRITE,URINE NEGATIVE (NEGATIVE); OCCULT BLOOD,URINE SMALL (NEGATIVE); PH,URINE 7.5 (5.0-8.0); PROTEIN,URINE >=300 mg/dL (NEGATIVE); UROBILINOGEN,URINE 0.2 EU/dL (<2.0)
[2022-06-10 15:09] LABS: AMPHETAMINES SCREEN, URINE NEGATIVE (CUTOFF=500); BARBITURATE SCREEN,URINE NEGATIVE (CUTOFF=200); BENZODIAZEPINES SCREEN,URINE NEGATIVE (CUTOFF=150); BUPRENORPHINE SCREEN,URINE NEGATIVE (CUTOFF=10); METHADONE SCREEN, URINE NEGATIVE (CUTOFF=200); METHAMPHETAMINES SCREEN, URINE NEGATIVE (CUTOFF=500); OXYCODONE SCREEN,URINE NEGATIVE (CUT0FF=100); PCP SCREEN,URINE NEGATIVE (CUTOFF=25); PROPOXYPHENE SCREEN,URINE NEGATIVE (CUTOFF=300); THC SCREEN,URINE 20 NG/ML NEGATIVE (CUTOFF=50)
[2022-06-10 15:15] LABS: BACTERIA,URINE RARE (NEGATIVE); EPITHELIAL CELLS,URINE MODERATE (NONE-FEW); WBC,URINE 0-3 (0-5/HPF)
[2022-06-10] MEDS ORDERED: Albuterol/Ipratropium 3.0-0.5 MG/3 ML Neb Soln NEB ONE (15:22)
[2022-06-10 15:31] LABS: CORONAVIRUS COVID-19 NAA NEGATIVE (NEGATIVE); INFLUENZA A NAA NEGATIVE (NEGATIVE); INFLUENZA B NAA NEGATIVE (NEGATIVE); RESPIRATORY SYNCYTIAL VIR NAA NEGATIVE (NEGATIVE)
[2022-06-10 17:37] LABS: TSH ULTRASENSITIVE 27.49 uIU/mL (0.36-3.74)
[2022-06-10 17:52] LABS: T4 FREE 0.79 ng/dL (0.76-1.46)
[2022-06-10] MEDS ORDERED: Dextrose 5%-0.9% NaCl 1,000 ML IV SCH (19:45)
[2022-06-10] MEDS: Dextrose 5%-0.45% NaCl 1,000 ML IV SCH (19:59)
[2022-06-10] MEDS ORDERED: D5 1/2 NS w/ 20 mEq/L KCl 1,000 ML IV SCH (20:00)
[2022-06-10] MEDS ORDERED: Acetaminophen 650 MG Supp RECTAL PRN (21:48)
[2022-06-10] MEDS ORDERED: Ondansetron 4 MG/2 ML SDV IVPUSH PRN (21:48)
[2022-06-10] MEDS ORDERED: Albuterol 8 GM Inhaler INH PRN (22:01)
[2022-06-10] MEDS ORDERED: Non-Formulary Medication 1 Each (Albuterol 8.5 GM Hfa.Aer.Ad) INH PRN (22:01)
[2022-06-10] MEDS ORDERED: Levothyroxine 75 MCG Tab PO SCH (22:15)
[2022-06-10] MEDS: Enoxaparin 40 MG/0.4 ML Syringe SUBCUT SCH (23:31)
[2022-06-10] MEDS: Albuterol/Ipratropium 3.0-0.5 MG/3 ML Neb Soln NEB PRN (23:31)
[2022-06-11] MEDS ORDERED: hydrALAZINE 20 MG/ML SDV IVPUSH PRN ×2 (04:11→12:10)
[2022-06-11] MEDS: Albuterol/Ipratropium 3.0-0.5 MG/3 ML Neb Soln NEB PRN ×3 (05:13→17:58)
[2022-06-11] MEDS ORDERED: Nitroglycerin 0.4 MG Tab.SL ONE (05:39)
[2022-06-11] MEDS ORDERED: Aspirin 300 MG Supp ONE (05:41)
[2022-06-11] MEDS: Nitroglycerin 0.4 MG Tab.SL SL PRN ×2 (05:45→05:54)
[2022-06-11] MEDS ORDERED: Aspirin 300 MG Supp RECTAL STA (05:47)
[2022-06-11] MEDS: Dextrose 5%-0.45% NaCl 1,000 ML IV SCH ×2 (05:59→15:29)
[2022-06-11 06:28] LABS: BASOPHILS ABSOLUTE AUTO 0.1 K/uL (0.0-0.1); BASOPHILS PERCENT AUTO 0.5 % (0.0-1.5); EOSINOPHILS ABSOLUTE AUTO 0.1 K/uL (0.0-0.7); EOSINOPHILS PERCENT AUTO 0.9 % (0.0-7.0); HEMATOCRIT 42.1 % (36.0-46.0); HEMOGLOBIN 13.8 g/dL (12.0-16.0); LYMPHOCYTES ABSOLUTE AUTO 1.1 K/uL (0.6-2.4); LYMPHOCYTES PERCENT AUTO 9.8 % (16.0-40.0); MEAN CORPUSCULAR HEMOGLOBIN 31.5 pg (27.0-32.0); MEAN CORPUSCULAR HGB CONC 32.8 g/dL (31.0-37.0); MEAN CORPUSCULAR VOLUME 96.1 fL (80.0-98.0); MONOCYTES ABSOLUTE AUTO 0.7 K/uL (0.0-0.8); MONOCYTES PERCENT AUTO 6.3 % (0.0-15.0); NEUTROPHILS ABSOLUTE AUTO 9.5 K/uL (1.4-5.7); NEUTROPHILS PERCENT AUTO 82.5 % (48.0-80.0); NRBC ABSOLUTE 0 K/uL; PLATELET COUNT,PLT 355 K/uL (150-400); RED BLOOD CELL COUNT 4.38 M/uL (4.30-5.90); WHITE BLOOD CELL COUNT,WBC 11.53 K/uL (4.0-11.0)
[2022-06-11 06:43] LABS: CALCIUM 8.1 mg/dL (8.5-10.1); CARBON DIOXIDE,CO2 26.3 mmol/L (21.0-32.0); CREATININE 0.6 mg/dL (0.6-1.0); EST CRCL DRUG DOSING (CG) 56.03 mL/min; MAGNESIUM 1.8 mg/dL (1.8-2.4); PHOSPHORUS 3.5 mg/dL (2.6-4.7); POTASSIUM,K 3.7 mmol/L (3.5-5.1)
[2022-06-11] MEDS ORDERED: Levothyroxine 75 MCG Tab PO SCH (07:30)
[2022-06-11] MEDS: Tiotropium Bromide 4 GM Inhalation Spray (2.5mcg/1 dose; 10 doses) INH SCH (08:18)
[2022-06-11] MEDS ORDERED: Hydrochlorothiazide 12.5 MG Cap PO SCH (09:00)
[2022-06-11] MEDS ORDERED: Lisinopril 10 MG Tab PO SCH (09:00)
[2022-06-11] MEDS ORDERED: Metoprolol Tartrate 5 MG/5 ML SDV IVPUSH PRN (10:43)
[2022-06-11] MEDS ORDERED: Iopamidol 755 MG/ML 500 ML Multipack Bottle IVPUSH ONE (12:55)
[2022-06-11] MEDS: Enoxaparin 40 MG/0.4 ML Syringe SUBCUT SCH (21:21)
[2022-06-12] MEDS: Dextrose 5%-0.45% NaCl 1,000 ML IV SCH ×2 (00:10→09:15)
[2022-06-12] MEDS: Albuterol/Ipratropium 3.0-0.5 MG/3 ML Neb Soln NEB PRN (04:32)
[2022-06-12 06:26] LABS: HEMOGLOBIN A1C 5.4 %
[2022-06-12] MEDS: Labetalol 100 MG/20 ML MDV IVPUSH PRN ×3 (06:58→21:14)
[2022-06-12 08:57] LABS: BASOPHILS ABSOLUTE AUTO 0.1 K/uL (0.0-0.1); BASOPHILS PERCENT AUTO 0.6 % (0.0-1.5); EOSINOPHILS PERCENT AUTO 0.3 % (0.0-7.0); HEMATOCRIT 41.2 % (36.0-46.0); HEMOGLOBIN 13.5 g/dL (12.0-16.0); LYMPHOCYTES PERCENT AUTO 10.3 % (16.0-40.0); MEAN CORPUSCULAR HEMOGLOBIN 31.2 pg (27.0-32.0); MEAN CORPUSCULAR HGB CONC 32.8 g/dL (31.0-37.0); MEAN CORPUSCULAR VOLUME 95.2 fL (80.0-98.0); MONOCYTES ABSOLUTE AUTO 0.8 K/uL (0.0-0.8); MONOCYTES PERCENT AUTO 8.1 % (0.0-15.0); NEUTROPHILS PERCENT AUTO 80.7 % (48.0-80.0); NRBC ABSOLUTE 0 K/uL; PLATELET COUNT,PLT 355 K/uL (150-400); RED BLOOD CELL COUNT 4.33 M/uL (4.30-5.90); WHITE BLOOD CELL COUNT,WBC 9.89 K/uL (4.0-11.0)
[2022-06-12] MEDS ORDERED: Aspirin 300 MG Supp RECTAL SCH (09:00)
[2022-06-12] MEDS ORDERED: Clopidogrel 75 MG Tab PO SCH (09:00)
[2022-06-12 09:25] LABS: CALCIUM 7.8 mg/dL (8.5-10.1); CARBON DIOXIDE,CO2 27.6 mmol/L (21.0-32.0); CREATININE 0.6 mg/dL (0.6-1.0); EST CRCL DRUG DOSING (CG) 56.03 mL/min; MAGNESIUM 1.8 mg/dL (1.8-2.4); PHOSPHORUS 3.7 mg/dL (2.6-4.7); POTASSIUM,K 3.9 mmol/L (3.5-5.1)
[2022-06-12] MEDS: Levothyroxine 100 MCG Vial IV SCH (12:59)
[2022-06-12] MEDS: Albuterol/Ipratropium 3.0-0.5 MG/3 ML Neb Soln NEB SCH ×4 (14:36→22:20)
[2022-06-12] MEDS: Tiotropium Bromide 4 GM Inhalation Spray (2.5mcg/1 dose; 10 doses) INH SCH (14:38)
[2022-06-12] MEDS: Lisinopril 10 MG Tab NGTUBE SCH (17:36)
[2022-06-12] MEDS: Metoprolol Tartrate 25 MG Tab GTUBE SCH ×2 (17:36→23:57)
[2022-06-12] MEDS: Clopidogrel 75 MG Tab GTUBE SCH (17:38)
[2022-06-12] MEDS ORDERED: atorvaSTATin 40 MG Tab PO SCH (21:00)
[2022-06-12] MEDS: atorvaSTATin 40 MG Tab NGTUBE SCH (21:02)
[2022-06-12] MEDS: Enoxaparin 40 MG/0.4 ML Syringe SUBCUT SCH (21:04)
[2022-06-13] MEDS: Albuterol/Ipratropium 3.0-0.5 MG/3 ML Neb Soln NEB SCH ×6 (01:56→21:43)
[2022-06-13] MEDS: Labetalol 100 MG/20 ML MDV IVPUSH PRN (03:49)
[2022-06-13 05:41] LABS: BASOPHILS ABSOLUTE AUTO 0.1 K/uL (0.0-0.1); BASOPHILS PERCENT AUTO 0.5 % (0.0-1.5); EOSINOPHILS ABSOLUTE AUTO 0.1 K/uL (0.0-0.7); EOSINOPHILS PERCENT AUTO 0.5 % (0.0-7.0); HEMATOCRIT 38.9 % (36.0-46.0); LYMPHOCYTES ABSOLUTE AUTO 1.5 K/uL (0.6-2.4); LYMPHOCYTES PERCENT AUTO 14.2 % (16.0-40.0); MEAN CORPUSCULAR HEMOGLOBIN 31.8 pg (27.0-32.0); MEAN CORPUSCULAR HGB CONC 33.4 g/dL (31.0-37.0); MEAN CORPUSCULAR VOLUME 95.1 fL (80.0-98.0); MONOCYTES ABSOLUTE AUTO 0.9 K/uL (0.0-0.8); MONOCYTES PERCENT AUTO 8.4 % (0.0-15.0); NEUTROPHILS ABSOLUTE AUTO 7.9 K/uL (1.4-5.7); NEUTROPHILS PERCENT AUTO 76.4 % (48.0-80.0); NRBC ABSOLUTE 0 K/uL; PLATELET COUNT,PLT 370 K/uL (150-400); RED BLOOD CELL COUNT 4.09 M/uL (4.30-5.90); WHITE BLOOD CELL COUNT,WBC 10.32 K/uL (4.0-11.0)
[2022-06-13 06:11] LABS: A/G RATIO 0.6 (0.9-1.6); ALBUMIN 2.1 g/dL (3.4-5.0); BILIRUBIN TOTAL 0.2 mg/dL (0.2-1.0); CALCIUM 7.9 mg/dL (8.5-10.1); CARBON DIOXIDE,CO2 26.7 mmol/L (21.0-32.0); CREATININE 0.7 mg/dL (0.6-1.0); EST CRCL DRUG DOSING (CG) 48.03 mL/min; PHOSPHORUS 4.5 mg/dL (2.6-4.7); POTASSIUM,K 3.7 mmol/L (3.5-5.1); PROTEIN TOTAL,TP 5.4 g/dL (6.4-8.2)
[2022-06-13] MEDS ORDERED: Furosemide 40 MG/4 ML VIAL IVPUSH ONE ×2 (06:42→11:00)
[2022-06-13] MEDS ORDERED: Acetaminophen 325 MG Tab NGTUBE PRN (07:53)
[2022-06-13] MEDS ORDERED: Nitroglycerin 2% Oint 1 GM UD Packet TOP SCH (08:00)
[2022-06-13] MEDS: methylPREDNISolone Sodium Succinate 40 MG/1 ML SDV IVPUSH SCH ×3 (08:57→23:54)
[2022-06-13] MEDS: Aspirin 81 MG Tab.Chew GTUBE SCH (08:58)
[2022-06-13] MEDS: Nitroglycerin 2% Oint 1 GM UD Packet TOP SCH ×2 (08:58→16:17)
[2022-06-13] MEDS: Clopidogrel 75 MG Tab GTUBE SCH (08:59)
[2022-06-13] MEDS: Lisinopril 10 MG Tab NGTUBE SCH (08:59)
[2022-06-13] MEDS: Tiotropium Bromide 4 GM Inhalation Spray (2.5mcg/1 dose; 10 doses) INH SCH (09:00)
[2022-06-13] MEDS ORDERED: guaiFENesin 100 MG/5 ML Soln 5 ML UD Cup NGTUBE SCH (10:24)
[2022-06-13] MEDS: Levothyroxine 100 MCG Vial IV SCH (10:44)
[2022-06-13] MEDS: guaiFENesin 100 MG/5 ML Soln 5 ML UD Cup NGTUBE SCH ×3 (11:11→21:43)
[2022-06-13] MEDS: Metoprolol Tartrate 25 MG Tab GTUBE SCH ×2 (11:23→23:53)
[2022-06-13] MEDS ORDERED: Lisinopril 10 MG Tab NGTUBE ONE (11:32)
[2022-06-13] MEDS ORDERED: Lisinopril 10 MG Tab ONE (14:16)
[2022-06-13] MEDS: atorvaSTATin 40 MG Tab NGTUBE SCH (20:26)
[2022-06-13] MEDS: Enoxaparin 40 MG/0.4 ML Syringe SUBCUT SCH (21:43)
[2022-06-14] MEDS: Nitroglycerin 2% Oint 1 GM UD Packet TOP SCH ×2 (00:10→10:09)
[2022-06-14] MEDS: Albuterol/Ipratropium 3.0-0.5 MG/3 ML Neb Soln NEB SCH ×6 (01:51→21:33)
[2022-06-14] MEDS: Levothyroxine 75 MCG Tab NGTUBE SCH (04:43)
[2022-06-14] MEDS ORDERED: Levothyroxine 75 MCG Tab PO SCH (05:00)
[2022-06-14] MEDS: guaiFENesin 100 MG/5 ML Soln 5 ML UD Cup NGTUBE SCH ×3 (05:46→21:36)
[2022-06-14 06:14] LABS: HEMATOCRIT 42.7 % (36.0-46.0); HEMOGLOBIN 14.1 g/dL (12.0-16.0); LYMPHOCYTES ABSOLUTE AUTO 0.8 K/uL (0.6-2.4); LYMPHOCYTES PERCENT AUTO 7.7 % (16.0-40.0); MEAN CORPUSCULAR HEMOGLOBIN 31.2 pg (27.0-32.0); MEAN CORPUSCULAR VOLUME 94.5 fL (80.0-98.0); MONOCYTES ABSOLUTE AUTO 0.2 K/uL (0.0-0.8); MONOCYTES PERCENT AUTO 2.4 % (0.0-15.0); NEUTROPHILS ABSOLUTE AUTO 9.1 K/uL (1.4-5.7); NEUTROPHILS PERCENT AUTO 89.9 % (48.0-80.0); NRBC ABSOLUTE 0 K/uL; PLATELET COUNT,PLT 477 K/uL (150-400); RED BLOOD CELL COUNT 4.52 M/uL (4.30-5.90); WHITE BLOOD CELL COUNT,WBC 10.16 K/uL (4.0-11.0)
[2022-06-14 06:41] LABS: ALBUMIN 2.4 g/dL (3.4-5.0); BILIRUBIN TOTAL 0.3 mg/dL (0.2-1.0); CALCIUM 8.6 mg/dL (8.5-10.1); EST CRCL DRUG DOSING (CG) 49.12 mL/min; MAGNESIUM 2.1 mg/dL (1.8-2.4); PHOSPHORUS 5.5 mg/dL (2.6-4.7); POTASSIUM,K 3.8 mmol/L (3.5-5.1); PROTEIN TOTAL,TP 6.1 g/dL (6.4-8.2)
[2022-06-14 06:45] LABS: A/G RATIO 0.7 (0.9-1.6)
[2022-06-14] MEDS: methylPREDNISolone Sodium Succinate 40 MG/1 ML SDV IVPUSH SCH (07:53)
[2022-06-14] MEDS: Clopidogrel 75 MG Tab GTUBE SCH (08:55)
[2022-06-14] MEDS: Aspirin 81 MG Tab.Chew GTUBE SCH (08:56)
[2022-06-14] MEDS: Tiotropium Bromide 4 GM Inhalation Spray (2.5mcg/1 dose; 10 doses) INH SCH (09:09)
[2022-06-14] MEDS ORDERED: Furosemide 40 MG/4 ML VIAL IVPUSH ONE (09:14)
[2022-06-14] MEDS: Lisinopril 10 MG Tab NGTUBE SCH (09:16)
[2022-06-14] MEDS: Empagliflozin 10 MG Tab PO SCH (09:27)
[2022-06-14] MEDS: Metoprolol Tartrate 25 MG Tab GTUBE SCH (11:48)
[2022-06-14] MEDS ORDERED: Phenol 1.4% Oral Spray 177 ML Bottle MUCMEM PRN (13:47)
[2022-06-14] MEDS: Enoxaparin 40 MG/0.4 ML Syringe SUBCUT SCH (21:35)
[2022-06-14] MEDS: atorvaSTATin 40 MG Tab NGTUBE SCH (21:36)
[2022-06-15] MEDS: Metoprolol Tartrate 25 MG Tab GTUBE SCH ×2 (00:26→12:04)
[2022-06-15] MEDS: Albuterol/Ipratropium 3.0-0.5 MG/3 ML Neb Soln NEB SCH ×6 (01:32→21:27)
[2022-06-15] MEDS: Labetalol 100 MG/20 ML MDV IVPUSH PRN (05:06)
[2022-06-15] MEDS: Levothyroxine 75 MCG Tab NGTUBE SCH (05:12)
[2022-06-15] MEDS: guaiFENesin 100 MG/5 ML Soln 5 ML UD Cup NGTUBE SCH ×3 (06:06→21:26)
[2022-06-15 06:21] LABS: BASOPHILS PERCENT AUTO 0.1 % (0.0-1.5); HEMATOCRIT 39.8 % (36.0-46.0); LYMPHOCYTES ABSOLUTE AUTO 1.1 K/uL (0.6-2.4); LYMPHOCYTES PERCENT AUTO 6.6 % (16.0-40.0); MEAN CORPUSCULAR HGB CONC 32.7 g/dL (31.0-37.0); MEAN CORPUSCULAR VOLUME 94.8 fL (80.0-98.0); MONOCYTES ABSOLUTE AUTO 1.4 K/uL (0.0-0.8); MONOCYTES PERCENT AUTO 8.7 % (0.0-15.0); NEUTROPHILS ABSOLUTE AUTO 14.1 K/uL (1.4-5.7); NEUTROPHILS PERCENT AUTO 84.6 % (48.0-80.0); NRBC ABSOLUTE 0 K/uL; PLATELET COUNT,PLT 367 K/uL (150-400)
[2022-06-15 06:55] LABS: ALBUMIN 2.2 g/dL (3.4-5.0); BILIRUBIN TOTAL 0.3 mg/dL (0.2-1.0); CALCIUM 7.6 mg/dL (8.5-10.1); CARBON DIOXIDE,CO2 31.8 mmol/L (21.0-32.0); CREATININE 0.8 mg/dL (0.6-1.0); EST CRCL DRUG DOSING (CG) 61.4 mL/min; MAGNESIUM 1.9 mg/dL (1.8-2.4); PHOSPHORUS 3.5 mg/dL (2.6-4.7); POTASSIUM,K 3.1 mmol/L (3.5-5.1); PROTEIN TOTAL,TP 5.6 g/dL (6.4-8.2)
[2022-06-15 06:56] LABS: A/G RATIO 0.7 (0.9-1.6)
[2022-06-15] MEDS ORDERED: Potassium Chloride 10% 20 MEQ/15 ML Soln 15 ML UD Cup GTUBE ONE (07:25)
[2022-06-15] MEDS: Aspirin 81 MG Tab.Chew GTUBE SCH (08:35)
[2022-06-15] MEDS: Empagliflozin 10 MG Tab PO SCH (08:36)
[2022-06-15] MEDS: Clopidogrel 75 MG Tab GTUBE SCH (08:36)
[2022-06-15] MEDS: Lisinopril 10 MG Tab NGTUBE SCH (08:36)
[2022-06-15] MEDS: Tiotropium Bromide 4 GM Inhalation Spray (2.5mcg/1 dose; 10 doses) INH SCH (12:04)
[2022-06-15] MEDS: atorvaSTATin 40 MG Tab NGTUBE SCH (21:26)
[2022-06-15] MEDS: Enoxaparin 40 MG/0.4 ML Syringe SUBCUT SCH (21:27)
[2022-06-16] MEDS: Metoprolol Tartrate 25 MG Tab GTUBE SCH ×2 (00:23→11:41)
[2022-06-16] MEDS: Albuterol/Ipratropium 3.0-0.5 MG/3 ML Neb Soln NEB SCH ×6 (02:01→22:14)
[2022-06-16] MEDS: guaiFENesin 100 MG/5 ML Soln 5 ML UD Cup NGTUBE SCH ×3 (05:13→22:14)
[2022-06-16] MEDS: Levothyroxine 75 MCG Tab NGTUBE SCH (05:13)
[2022-06-16 06:21] LABS: BASOPHILS PERCENT AUTO 0.1 % (0.0-1.5); HEMATOCRIT 37.8 % (36.0-46.0); HEMOGLOBIN 12.5 g/dL (12.0-16.0); LYMPHOCYTES ABSOLUTE AUTO 1.2 K/uL (0.6-2.4); LYMPHOCYTES PERCENT AUTO 4.5 % (16.0-40.0); MEAN CORPUSCULAR HEMOGLOBIN 31.6 pg (27.0-32.0); MEAN CORPUSCULAR HGB CONC 33.1 g/dL (31.0-37.0); MEAN CORPUSCULAR VOLUME 95.5 fL (80.0-98.0); MONOCYTES ABSOLUTE AUTO 1.4 K/uL (0.0-0.8); MONOCYTES PERCENT AUTO 5.4 % (0.0-15.0); NEUTROPHILS ABSOLUTE AUTO 23.2 K/uL (1.4-5.7); NRBC ABSOLUTE 0 K/uL; PLATELET COUNT,PLT 348 K/uL (150-400); RED BLOOD CELL COUNT 3.96 M/uL (4.30-5.90); WHITE BLOOD CELL COUNT,WBC 25.78 K/uL (4.0-11.0)
[2022-06-16 06:53] LABS: A/G RATIO 0.5 (0.9-1.6); BILIRUBIN TOTAL 0.5 mg/dL (0.2-1.0); CALCIUM 8.1 mg/dL (8.5-10.1); CARBON DIOXIDE,CO2 30.7 mmol/L (21.0-32.0); CREATININE 0.7 mg/dL (0.6-1.0); EST CRCL DRUG DOSING (CG) 45.51 mL/min; PHOSPHORUS 3.2 mg/dL (2.6-4.7); POTASSIUM,K 3.6 mmol/L (3.5-5.1); PROTEIN TOTAL,TP 5.8 g/dL (6.4-8.2)
[2022-06-16] MEDS ORDERED: Furosemide 40 MG/4 ML VIAL IVPUSH ONE (08:40)
[2022-06-16] MEDS: Clopidogrel 75 MG Tab GTUBE SCH (08:56)
[2022-06-16] MEDS: Empagliflozin 10 MG Tab PO SCH (08:56)
[2022-06-16] MEDS: Aspirin 81 MG Tab.Chew GTUBE SCH (08:56)
[2022-06-16] MEDS: Lisinopril 10 MG Tab NGTUBE SCH (08:57)
[2022-06-16] MEDS ORDERED: Potassium Chloride 10% 20 MEQ/15 ML Soln 15 ML UD Cup NGTUBE ONE (09:02)
[2022-06-16] MEDS: Amoxicillin/Clavulanate K 400-57 MG/5 ML Susp 100 ML Bottle NGTUBE SCH ×2 (10:45→22:13)
[2022-06-16] MEDS: Tiotropium Bromide 4 GM Inhalation Spray (2.5mcg/1 dose; 10 doses) INH SCH (10:47)
[2022-06-16] MEDS: atorvaSTATin 40 MG Tab NGTUBE SCH (22:14)
[2022-06-16] MEDS: Enoxaparin 40 MG/0.4 ML Syringe SUBCUT SCH (22:14)
[2022-06-17] MEDS: Metoprolol Tartrate 25 MG Tab GTUBE SCH ×2 (00:22→12:02)
[2022-06-17] MEDS: Albuterol/Ipratropium 3.0-0.5 MG/3 ML Neb Soln NEB SCH ×6 (02:11→21:27)
[2022-06-17] MEDS: guaiFENesin 100 MG/5 ML Soln 5 ML UD Cup NGTUBE SCH ×3 (05:41→21:27)
[2022-06-17] MEDS: Levothyroxine 75 MCG Tab NGTUBE SCH (05:41)
[2022-06-17 06:08] LABS: BASOPHILS PERCENT AUTO 0.1 % (0.0-1.5); HEMATOCRIT 37.3 % (36.0-46.0); HEMOGLOBIN 12.3 g/dL (12.0-16.0); LYMPHOCYTES ABSOLUTE AUTO 0.9 K/uL (0.6-2.4); LYMPHOCYTES PERCENT AUTO 4.3 % (16.0-40.0); MEAN CORPUSCULAR HEMOGLOBIN 31.7 pg (27.0-32.0); MEAN CORPUSCULAR VOLUME 96.1 fL (80.0-98.0); MONOCYTES ABSOLUTE AUTO 1.1 K/uL (0.0-0.8); MONOCYTES PERCENT AUTO 5.2 % (0.0-15.0); NEUTROPHILS ABSOLUTE AUTO 18.9 K/uL (1.4-5.7); NEUTROPHILS PERCENT AUTO 90.4 % (48.0-80.0); NRBC ABSOLUTE 0 K/uL; PLATELET COUNT,PLT 349 K/uL (150-400); RED BLOOD CELL COUNT 3.88 M/uL (4.30-5.90); WHITE BLOOD CELL COUNT,WBC 20.87 K/uL (4.0-11.0)
[2022-06-17 06:39] LABS: CALCIUM 7.8 mg/dL (8.5-10.1); CARBON DIOXIDE,CO2 30.9 mmol/L (21.0-32.0); CREATININE 0.7 mg/dL (0.6-1.0); EST CRCL DRUG DOSING (CG) 45.51 mL/min; MAGNESIUM 1.9 mg/dL (1.8-2.4); PHOSPHORUS 3.6 mg/dL (2.6-4.7); POTASSIUM,K 4.5 mmol/L (3.5-5.1)
[2022-06-17] MEDS ORDERED: Furosemide 20 MG Tab NGTUBE SCH (09:00)
[2022-06-17] MEDS: Empagliflozin 10 MG Tab GTUBE SCH (09:04)
[2022-06-17] MEDS: Clopidogrel 75 MG Tab GTUBE SCH (09:04)
[2022-06-17] MEDS: Aspirin 81 MG Tab.Chew GTUBE SCH (09:04)
[2022-06-17] MEDS: Furosemide 40 MG/4 ML VIAL IVPUSH SCH ×2 (09:05→21:27)
[2022-06-17] MEDS: Lisinopril 10 MG Tab NGTUBE SCH (09:05)
[2022-06-17] MEDS: Amoxicillin/Clavulanate K 400-57 MG/5 ML Susp 100 ML Bottle NGTUBE SCH ×2 (09:05→21:28)
[2022-06-17] MEDS: Famotidine 20 MG Tab NGTUBE SCH (12:02)
[2022-06-17] MEDS: Tiotropium Bromide 4 GM Inhalation Spray (2.5mcg/1 dose; 10 doses) INH SCH (12:04)
[2022-06-17] MEDS: atorvaSTATin 40 MG Tab NGTUBE SCH (21:27)
[2022-06-17] MEDS: Enoxaparin 40 MG/0.4 ML Syringe SUBCUT SCH (21:28)
[2022-06-18] MEDS: Metoprolol Tartrate 25 MG Tab GTUBE SCH ×2 (00:27→12:26)
[2022-06-18] MEDS: Albuterol/Ipratropium 3.0-0.5 MG/3 ML Neb Soln NEB SCH ×6 (01:10→21:16)
[2022-06-18] MEDS: Levothyroxine 75 MCG Tab NGTUBE SCH (04:53)
[2022-06-18] MEDS: guaiFENesin 100 MG/5 ML Soln 5 ML UD Cup NGTUBE SCH ×3 (05:02→21:16)
[2022-06-18 06:30] LABS: HEMATOCRIT 39.3 % (36.0-46.0); HEMOGLOBIN 12.7 g/dL (12.0-16.0); MEAN CORPUSCULAR HEMOGLOBIN 30.9 pg (27.0-32.0); MEAN CORPUSCULAR HGB CONC 32.3 g/dL (31.0-37.0); MEAN CORPUSCULAR VOLUME 95.6 fL (80.0-98.0); MEAN PLATELET VOLUME 10.1 fL (7.40-12.00); RED BLOOD CELL COUNT 4.11 M/uL (4.30-5.90); WHITE BLOOD CELL COUNT,WBC 18.1 K/uL (4.0-11.0)
[2022-06-18 06:44] LABS: CALCIUM 8.1 mg/dL (8.5-10.1); CARBON DIOXIDE,CO2 33.6 mmol/L (21.0-32.0); CREATININE 0.7 mg/dL (0.6-1.0); EST CRCL DRUG DOSING (CG) 38.76 mL/min; POTASSIUM,K 4.1 mmol/L (3.5-5.1)
[2022-06-18] MEDS: Furosemide 40 MG/4 ML VIAL IVPUSH SCH ×2 (08:10→21:15)
[2022-06-18] MEDS: Aspirin 81 MG Tab.Chew GTUBE SCH (08:10)
[2022-06-18] MEDS: Clopidogrel 75 MG Tab GTUBE SCH (08:10)
[2022-06-18] MEDS: Empagliflozin 10 MG Tab GTUBE SCH (08:11)
[2022-06-18] MEDS: Famotidine 20 MG Tab NGTUBE SCH (08:11)
[2022-06-18] MEDS: Lisinopril 10 MG Tab NGTUBE SCH (08:11)
[2022-06-18] MEDS: Amoxicillin/Clavulanate K 400-57 MG/5 ML Susp 100 ML Bottle NGTUBE SCH (08:13)
[2022-06-18] MEDS: Tiotropium Bromide 4 GM Inhalation Spray (2.5mcg/1 dose; 10 doses) INH SCH (09:03)
[2022-06-18] MEDS ORDERED: Azithromycin 250 MG Tab PO SCH (12:15)
[2022-06-18] MEDS: Piperacillin/Tazobactam 3.375 GM in Sodium Chloride 0.9% 100 ML IV SCH ×2 (12:25→18:27)
[2022-06-18] MEDS ORDERED: Azithromycin 200 MG/5 ML Susp 15 ML Bottle PO SCH (12:30)
[2022-06-18] MEDS: Azithromycin 200 MG/5 ML Susp 15 ML Bottle NGTUBE SCH (12:35)
[2022-06-18] MEDS: Enoxaparin 40 MG/0.4 ML Syringe SUBCUT SCH (21:16)
[2022-06-18] MEDS: atorvaSTATin 40 MG Tab NGTUBE SCH (21:16)
[2022-06-19] MEDS: Piperacillin/Tazobactam 3.375 GM in Sodium Chloride 0.9% 100 ML IV SCH ×3 (00:20→12:09)
[2022-06-19] MEDS: Metoprolol Tartrate 25 MG Tab GTUBE SCH ×2 (00:20→12:09)
[2022-06-19] MEDS: Albuterol/Ipratropium 3.0-0.5 MG/3 ML Neb Soln NEB SCH ×3 (01:43→09:57)
[2022-06-19] MEDS: Levothyroxine 75 MCG Tab NGTUBE SCH (05:25)
[2022-06-19] MEDS: guaiFENesin 100 MG/5 ML Soln 5 ML UD Cup NGTUBE SCH (05:25)
[2022-06-19 06:13] LABS: BASOPHILS PERCENT AUTO 0.1 % (0.0-1.5); HEMATOCRIT 38.7 % (36.0-46.0); HEMOGLOBIN 12.7 g/dL (12.0-16.0); LYMPHOCYTES ABSOLUTE AUTO 0.6 K/uL (0.6-2.4); LYMPHOCYTES PERCENT AUTO 3.3 % (16.0-40.0); MEAN CORPUSCULAR HEMOGLOBIN 31.1 pg (27.0-32.0); MEAN CORPUSCULAR HGB CONC 32.8 g/dL (31.0-37.0); MEAN CORPUSCULAR VOLUME 94.6 fL (80.0-98.0); MONOCYTES ABSOLUTE AUTO 1.6 K/uL (0.0-0.8); MONOCYTES PERCENT AUTO 8.3 % (0.0-15.0); NEUTROPHILS ABSOLUTE AUTO 16.5 K/uL (1.4-5.7); NEUTROPHILS PERCENT AUTO 88.3 % (48.0-80.0); NRBC ABSOLUTE 0 K/uL; PLATELET COUNT,PLT 461 K/uL (150-400); RED BLOOD CELL COUNT 4.09 M/uL (4.30-5.90)
[2022-06-19 06:28] LABS: CALCIUM 8.3 mg/dL (8.5-10.1); CARBON DIOXIDE,CO2 33.7 mmol/L (21.0-32.0); CREATININE 0.9 mg/dL (0.6-1.0); EST CRCL DRUG DOSING (CG) 30.14 mL/min; POTASSIUM,K 3.4 mmol/L (3.5-5.1)
[2022-06-19] MEDS: Furosemide 40 MG/4 ML VIAL IVPUSH SCH (07:43)
[2022-06-19] MEDS ORDERED: Potassium Chloride 10% 20 MEQ/15 ML Soln 15 ML UD Cup NGTUBE ONE (07:50)
[2022-06-19] MEDS ORDERED: Potassium Chloride 10% 20 MEQ/15 ML Soln 15 ML UD Cup PO ONE (07:50)
[2022-06-19] MEDS: Famotidine 20 MG Tab NGTUBE SCH (08:39)
[2022-06-19] MEDS: Clopidogrel 75 MG Tab GTUBE SCH (08:39)
[2022-06-19] MEDS: Lisinopril 10 MG Tab NGTUBE SCH (08:39)
[2022-06-19] MEDS: Empagliflozin 10 MG Tab GTUBE SCH (08:39)
[2022-06-19] MEDS: Aspirin 81 MG Tab.Chew GTUBE SCH (08:40)
[2022-06-19] MEDS: Tiotropium Bromide 4 GM Inhalation Spray (2.5mcg/1 dose; 10 doses) INH SCH (10:49)
[2022-06-19 12:06] VITALS: BP 133/68
[2022-06-19] MEDS: Azithromycin 200 MG/5 ML Susp 15 ML Bottle NGTUBE SCH (12:09)
[2022-06-19 12:11] VITALS: PULSE 90
== END 2022-06-19 13:00 | DRG 64 ==
LOC: MW.ED 13:34 → MW.MS 18:20
PROVIDERS: ADMIT Hospitalist; ATTEND Hospitalist
DX: I63.9 Cerebral infarction, unspecified (principal); E43 Unspecified severe protein-calorie malnutrition; I21.4 Non-ST elevation (NSTEMI) myocardial infarction; J69.0 Pneumonitis due to inhalation of food and vomit; G81.91 Hemiplegia, unspecified affecting right dominant side; I50.20 Unspecified systolic (congestive) heart failure; Z68.1 Body mass index [BMI] 19.9 or less, adult; E03.9 Hypothyroidism, unspecified; R13.12 Dysphagia, oropharyngeal phase; J43.9 Emphysema, unspecified; R29.703 NIHSS score 3; M79.7 Fibromyalgia; R29.810 Facial weakness; I11.0 Hypertensive heart disease with heart failure; K21.9 Gastro-esophageal reflux disease without esophagitis; Z87.891 Personal history of nicotine dependence; Z79.51 Long term (current) use of inhaled steroids; Z79.890 Hormone replacement therapy; Z79.899 Other long term (current) drug therapy; Z79.82 Long term (current) use of aspirin; Z79.02 Long term (current) use of antithrombotics/antiplatelets; Z90.89 Acquired absence of other organs; Z98.890 Other specified postprocedural states
CPT/HCPCS: 0241U; 36415; 70450; 70450-26; 70496; 70496-26; 70498; 70498-26; 70551; 70551-26; 71045; 71045-26; 71250; 71250-26; 74018; 74018-26; 74022; 74022-26; 80048; 80053; 80061; 80202; 80305-QW; 80307; 81001; 82607; 82947; 83036; 83735; 83880; 84100; 84439; 84443; 84484; 85025; 85027; 85610; 85730; 92526-GN; 92610-GN; 93005; 93010; 93306; 93880; 93880-26; 93976; 93976-26; 94640; 96360; 96361; 97110-GP; 97162-GP; 97530-GP; 99285; 99285-25; A9270-GY; J0360; J1650; J1940; J2543; J2920; J3370; J3490; J7030; J7042; J7050; J7620-GY; Q9967